=== PATIENT | male | born 1950 | race Caucasian/White ===

== ENCOUNTER → 2016-11-29 | Outpatient (CLI) | payer SELFPAY | LOC: HEART 5 10:16 | DX: R00.2 Palpitations (principal) ==

== ENCOUNTER → 2021-07-27 | Outpatient (CLI) | payer MEDICARE ==
[~2021-07-27] MED LIST: ASPIRIN CHEWABL81 MG PO; CYCLOBENZAPRINE10 MG PO; DIABETA 5 MG TAB5 MG PO; FEXOFENADINE H180 MG PO; FLOMAX 0.4 MG0.4 MG PO; GLIPIZIDE5 MG PO; HYDROCHLOROTHIA25 MG PO; JANUVIA100 MG PO; LANTUS100 UNIT/1 SQ; LISINOPRIL10 MG PO; NEURONTIN 300300 MG PO; NORCO 10-325 T1 EACH PO; NORVASC 5 MG TAB5 MG PO; PROTONIX 40 MG40 M1 PO; SIMVASTATIN10 MG PO; TOPROL XL 25 MG25 MG PO; VOLTAREN EC 7575 MG PO
== END ==
LOC: KOH-I 11:40
DX: M25.511 Pain in right shoulder (principal); R93.6 Abnormal findings on diagnostic imaging of limbs
CPT/HCPCS: 73030

== ENCOUNTER 2021-10-10 16:29 | Emergency (ER) | payer MEDICARE ==
[2021-10-10] MEDS ORDERED: IBUPROFEN400 MG PO (18:25)
[2021-10-10] MEDS ORDERED: BACTROBAN OINT22 GM EXT (18:25)
== END 2021-10-10 18:29 | disposition home or self-care (01) ==
LOC: ER1 16:29
DX: S60.221A Contusion of right hand, initial encounter (principal); Z23 Encounter for immunization; E11.9 Type 2 diabetes mellitus without complications; Z79.4 Long term (current) use of insulin; Z79.84 Long term (current) use of oral hypoglycemic drugs; Z88.0 Allergy status to penicillin; W23.0XXA Caught, crushed, jammed, or pinched between moving objects, initial encounter
CPT/HCPCS: 73110; 73130; 90715; 99283